=== PATIENT | male | born 1965 | race Caucasian/White ===

== ENCOUNTER 2018-06-12 18:27 | Inpatient (IN) | payer MEDICAID, OTHER ==
[2018-06-12 18:29] VITALS: BMI 45.4
--- NOTE | 2018-06-12 18:59 | ED PDOC ---
Arrival/HPI - General Time Seen by Provider: 06/12/18 18:38 Historian: Patient - History of Present Illness Narrative History of Present Illness (Text): 06/12/18 18:54 A 53 year old male, whose past medical history includes asthma, presents to the emergency department with a complaint of sudden onset chest pain. Patient notes that for the last 2 weeks his asthma has been worsening. He notes that he has been seen by his PMD who prescribed him Albuterol and nebulizer treatments, but his symptoms have not resolved. He states that he was seen by his PMD today and was prescribed Zithromax which he started taking today. The patient states that about 1.5 hours ago he began to feel a pressure like sensation in his chest pain. The patient states that he has never experienced that pain before and was concerned. He also notes that he felt warm this morning and took Tylenol for his subjective fever. The patient denies chills, headache, dizziness, sore throat, cough, chest pain, shortness of breath, dyspnea on exertion, abdominal pain, nausea, vomiting, diarrhea, neck/back pain, urinary/bowel changes or any other complaint. PMD: Dr. Justino Savage Time/Duration: Other (2 weeks) Symptom Onset: Sudden Symptom Course: Unchanged Activities at Onset: Rest, Light Context: Home Past Medical History - Provider Review Nursing Documentation Reviewed: Yes - Infectious Disease Hx of Infectious Diseases: None - Tetanus Immunization Tetanus Immunization: Unknown - Pulmonary Hx Asthma: Yes - Psychiatric Hx Depression: No Hx Emotional Abuse: No Hx Physical Abuse: No Hx Substance Use: No - Past Surgical History Past Surgical History: No Previous - Suicidal Assessment Feels Threatened In Home Enviroment: No Family/Social History - Physician Review Nursing Documentation Reviewed: Yes Family/Social History: No Known Family HX Hx Alcohol Use: No Hx Substance Use: No Hx Substance Use Treatment: No Allergies/Home Meds Allergies/Adverse Reactions: Allergies Penicillins Allergy (Verified 06/12/18 18:30) ANAPHYLAXIS Home Medications: Home Meds Medication Instructions Recorded Confirmed Adalimumab [Humira] 20 mg IM QWK 10/31/13 06/12/18 Albuterol HFA [Ventolin HFA 90 2 puff IH [id number] 06/12/18 06/12/18 mcg/actuation (8 g)] Review of Systems - Physician Review All systems were reviewed & negative as marked: Yes - Review of Systems Constitutional: Fevers ENT: absent: Sore Throat Respiratory: SOB (Worsening asthma) Cardiovascular: Chest Pain. absent: BARNETT Gastrointestinal: absent: Abdominal Pain, Stool Changes, Diarrhea, Nausea, Vomiting Genitourinary Male: absent: Urinary Output Changes Musculoskeletal: absent: Back Pain, Neck Pain Neurological: absent: Headache, Dizziness Physical Exam Vital Signs Reviewed: Yes Vital Signs Temp Pulse Resp BP Pulse Ox 06/12/18 21:01 99.9 F H 06/12/18 19:25 102.3 F H 06/12/18 18:48 103 F H 114 H 18 161/82 H 99 Temperature: Febrile Blood Pressure: Hypertensive Pulse: Tachycardic Respiratory Rate: Normal Appearance: Positive for: Well-Appearing, Non-Toxic, Comfortable Pain Distress: None Mental Status: Positive for: Alert and Oriented X 3 - Systems Exam Head: Present: Atraumatic, Normocephalic Pupils: Present: PERRL Extroacular Muscles: Present: EOMI Conjunctiva: Present: Normal Mouth: Present: Moist Mucous Membranes Neck: Present: Normal Range of Motion Respiratory/Chest: Present: Clear to Auscultation, Good Air Exchange, Tender to Palpation (Tenderness in the left sternal area of the chest. ). No: Respiratory Distress, Accessory Muscle Use Cardiovascular: Present: Regular Rate and Rhythm, Normal S1, S2. No: Murmurs Abdomen: No: Tenderness, Distention, Peritoneal Signs Back: Present: Normal Inspection Upper Extremity: Present: Normal Inspection. No: Cyanosis, Edema Lower Extremity: Present: Normal Inspection. No: Edema Neurological: Present: GCS=15, CN II-XII Intact, Speech Normal Skin: Present: Warm (Fever), Dry, Normal Color. No: Rashes Psychiatric: Present: Alert, Oriented x 3, Normal Insight, Normal Concentration Medical Decision Making ED Course and Treatment: 06/12/18 19:00 Impression: A 53 year old male presents to the emergency department with a complain of sudden onset chest pain and worsening asthma. Differential Diagnosis included but are not limited to: r/o Pneumonia Plan: -- EKG -- Chest X-ray -- Labs -- Blood Culture -- Tylenol -- Reassess and disposition Progress Notes: EKG: Ordered, reviewed, and independently interpreted the EKG. Rate : 112 BPM Rhythm : Sinus Tachycardia 06/12/18 20:41: Chest X-ray read and interpreted by me shows left lower lobe pneumonia. Port Score 76 due to Temperature 103 and HR 120's. Patient was treated with Levaquin. Has PCN allergy. Continue to hydrate. HR improved from 120's to 100's. Temperature improved. 06/12/18 21:17: Case discussed in detail with Dr. Gonzalez. Discussed case with medical massage therapist who will evaluate patient in emergency department. - Critical Care Critical Care Minutes: 30 minutes - Lab Interpretations Lab Results: 06/12/18 18:55 06/12/18 18:55 Lab Results 06/12/18 19:19: pO2 40, VBG pH 7.39, VBG pCO2 45.0, VBG HCO3 27.2, VBG Total CO2 28.6 H, VBG O2 Sat (Calc) 81.0 H, VBG Base Excess 1.7, VBG Potassium 4.2, Glucose 94, Lactate 1.5, FiO2 21.0, Sodium 140.0, Chloride 105.0, Venous Blood Potassium 4.2 06/12/18 18:55: Sodium 141, Potassium 4.4, Chloride 105, Carbon Dioxide 24, Anion Gap 17, BUN 17, Creatinine 0.8, Est GFR ( Amer) > 60, Est GFR (Non- Af Amer) > 60, Random Glucose 100, Calcium 8.7, Phosphorus 2.7, Magnesium 2.2, Total Bilirubin 0.6, AST 24, ALT 33, Alkaline Phosphatase 82, Troponin I < 0.01 , Total Protein 7.5, Albumin 4.0, Globulin 3.5, Albumin/Globulin Ratio 1.1 06/12/18 18:55: PT 14.0, INR 1.22, APTT 26.6 06/12/18 18:55: WBC 17.1 H, RBC 4.50, Hgb 13.8 L, Hct 39.8 L, MCV 88.4, MCH 30.7 , MCHC 34.7, RDW 14.5, Plt Count 264, MPV 10.2, Gran % 69.6 H, Lymph % (Auto) 19.2 L, Mcpherson % (Auto) 10.4 H, Eos % (Auto) 0.6 L, Baso % (Auto) 0.2, Gran # 11.87 H, Lymph # (Auto) 3.3, Mcpherson # (Auto) 1.8 H, Eos # (Auto) 0.1, Baso # (Auto ) 0.04 I have reviewed the lab results: Yes - RAD Interpretation Radiology Orders: 06/12/18 18:47 CHEST PORTABLE [RAD] Stat - EKG Interpretation Interpreted by ED Physician: Yes Type: 12 lead EKG - Medication Orders Current Medication Orders: Acetaminophen (Tylenol 325mg Tab) 650 mg PO Q6H PRN PRN Reason: Pain, moderate (4-7) Albuterol/Ipratropium (Duoneb 3 Mg/0.5 Mg (3 Ml) Ud) 3 ml IH Q2H PRN PRN Reason: Shortness of Breath Albuterol/Ipratropium (Duoneb 3 Mg/0.5 Mg (3 Ml) Ud) 3 ml IH [id number] MELISSA Famotidine (Pepcid 20mg/50ml Premix) 20 mg in 50 mls @ 100 mls/hr IV Q12 MELISSA Sodium Chloride (Sodium Chloride 0.9%) 1,000 mls @ 100 mls/hr IV .Q10H MELISSA Methylprednisolone (Solu-Medrol) 60 mg IVP Q8 MELISSA Discontinued Medications Acetaminophen (Tylenol 325mg Tab) 975 mg PO STAT STA Stop: 06/12/18 18:54 Last Admin: 06/12/18 19:25 Dose: 975 mg [employer] [facility] Pain/Vitals Document 06/12/18 19:25 (Rec: 06/12/18 19:44 RG [id number]) Pain Reassessment Is This A Pain ReAssessment? No Vitals Temperature (97.6 F-99.6 F) 102.3 F Temperature Source Oral Re-Assess: MAR Pain/Vitals Document 06/12/18 21:01 RG (Rec: 06/12/18 21:01 RG [id number]) Vitals Temperature (97.6 F-99.6 F) 99.9 F Temperature Source Oral Albuterol/Ipratropium (Duoneb 3 Mg/0.5 Mg (3 Ml) Ud) 3 ml IH [id number] PRN PRN Reason: Shortness of Breath Sodium Chloride (Sodium Chloride 0.9%) 1,000 mls @ 999 mls/hr IV .Q1H1M STA Stop: 06/12/18 21:15 Last Admin: 06/12/18 20:30 Dose: 999 mls/hr eMAR Start Stop Document 06/12/18 20:30 RG (Rec: 06/12/18 20:30 RG [id number]) Intravenous Solution Start Date 06/12/18 Start Time 20:30 Levofloxacin/Dextrose (Levaquin 750mg) 750 mg in 150 mls @ 100 mls/hr IVPB STAT STA PRN Reason: Protocol Stop: 06/12/18 22:12 Last Admin: 06/12/18 20:57 Dose: 100 mls/hr eMAR Start Stop Document 06/12/18 20:57 RG (Rec: 06/12/18 21:01 RG [id number]) Intravenous Solution Start Date 06/12/18 Start Time 20:57 - Scribe Statement The provider has reviewed the documentation as recorded by the Scribe Onelia Lee Provider Scribe Attestation: All medical record entries made by the Scribe were at my direction and personally dictated by me. I have reviewed the chart and agree that the record accurately reflects my personal performance of the history, physical exam, medical decision making, and the department course for this patient. I have also personally directed, reviewed, and agree with the discharge instructions and disposition. Disposition/Present on Arrival - Present on Arrival Any Indicators Present on Arrival: No History of DVT/PE: No History of Uncontrolled Diabetes: No Urinary Catheter: No History Surgical Site Infection Following: None - Disposition Have Diagnosis and Disposition been Completed?: Yes Diagnosis: Pneumonia Disposition: HOSPITALIZED Disposition Time: 22:16 Patient Plan: Admission Condition: FAIR
[2018-06-12 19:30] LABS: BASO # 0.04 K/mm3 (0.0-2.0); BASO % 0.2 % (0.0-3.0); EOS # 0.1 (0.0-0.7); EOS % 0.6 % (1.5-5.0); GRAN # 11.87 (1.4-6.5); GRAN % 69.6 % (50.0-68.0); HEMOGLOBIN 13.8 g/dL (14.0-18.0); LYMPH # 3.3 (1.2-3.4); LYMPH % 19.2 % (22.0-35.0); MEAN CELL VOLUME 88.4 fl (80.0-105.0); MEAN CORPUSCULAR HEMOGLOBIN 30.7 pg (25.0-35.0); MEAN CORPUSCULAR HGB CONC 34.7 g/dl (31.0-37.0); MEAN PLATELET VOLUME 10.2 fl (7.0-11.0); MONO # 1.8 (0.1-0.6); MONO % 10.4 % (1.0-6.0); RBC 4.5 10^6/uL (3.5-6.1); RED CELL DISTRIBUTION WIDTH 14.5 % (11.5-14.5); WHITE BLOOD COUNT 17.1 10^3/ul (4.5-11.0)
[2018-06-12 19:31] LABS: VENOUS BLOOD GAS BASE EXCESS 1.7 mmol/L (0.0-2.0); VENOUS BLOOD GAS PO2 40 mm/Hg (30-55); VENOUS BLOOD PH 7.39 (7.32-7.43)
[2018-06-12 19:40] LABS: ALB/GLOB RATIO 1.1 (1.1-1.8); ALT/SGPT 33 U/L (7-56); AST/SGOT 24 U/L (17-59); BLOOD UREA NITROGEN 17 mg/dL (7-21); CALCIUM 8.7 mg/dL (8.4-10.5); GFR AFRICAN-AMERICAN > 60; GFR NON-AFRICAN AMERICAN > 60
[2018-06-12 19:51] LABS: TROPONIN I < 0.01 ng/mL
[2018-06-12 20:04] LABS: INR 1.22
[2018-06-12 20:07] LABS: PARTIAL THROMBOPLASTIN TIME 26.6 Seconds
[2018-06-12] MEDS ORDERED: Sodium Chloride 0.9% 1,000 ML IV STA (20:15)
[2018-06-12] MEDS ORDERED: levoFLOXacin 750 mg in D5W 750 MG/150 ML BAG IVPB STA (20:43)
[2018-06-12] MEDS ORDERED: Albuterol-Ipratrop 3 mg / 0.5 (3 ml) UD IH PRN ×2 (21:40→21:48)
[2018-06-12] MEDS: Famotidine 20mg/50ml 20 MG/50 ML BAG IV SCH (22:24)
[2018-06-12] MEDS: Sodium Chloride 0.9% 1,000 ML IV SCH (22:34)
--- NOTE | 2018-06-13 00:54 | CP.PCM.HP ---
<Darwin Garcia - Last Filed: 06/13/18 07:03> History of Present Illness - History of Present Illness History of Present Illness: HPI for Dr Carlos Garcia, PGY1 C.C: Chest pain x1 day HPI: 53 y/o male with PMH of mild intermittent asthma, psoriasis presents with left sided chest pain 5-6/10, sharp, localized by one finger tip, no radiation, has been for the whole day, worsen by inspiration, no alleviating factors. Patient states that 2 weeks ago when he was in a recreational trip, he started to feel sore throat, URI symptoms, fever, cough/productive with yellow sputum, wheezing, SOB. Patient was prescribed Albuterol and Nebulizer therapy and prednisone by his PMD. His symptoms did not resolve completely and got worse after finishing prednisone. Chest pain developed today while shopping outside. His fever was up to 103, diaphoresis and cough and wheezing getting worse, then he decided to come to ED for evaluation. Patient was given Erythromycin by his PMD, took only one dose. Patient denied intubation due to asthma exacerbation. Last hospitalization was many years ago. His asthma is well controlled with Albuterol prn. Present on Admission - Present on Admission Any Indicators Present on Admission: No Review of Systems - Constitutional Constitutional: Chills, Excessive Sweating, Fatigue, Fever, Lethargy - EENT Eyes: absent: Discharge, Dry Eye, Irritation Ears: Tinnitus (chronic. b/l). absent: Ear Discharge, Dizziness Nose/Mouth/Throat: Nasal Congestion. absent: Sinus Pressure, Change in Voice - Cardiovascular Cardiovascular: absent: Chest Pain at Rest, Edema, Leg Edema, Orthopnea, Palpitations, Paroxysmal Nocturnal Dyspnea, Pedal Edema - Respiratory Respiratory: Cough, Dyspnea on Exertion, Wheezing, Snoring, Pain on Inspiration , Chest Congestion, Excessive Mucous Production, Change in Mucous Color, Pain with Coughing. absent: Hemoptysis - Gastrointestinal Gastrointestinal: absent: Abdominal Pain, Change in Stool Character, Cramping, Diarrhea, Loose Stools, Nausea, Vomiting Past Patient History - Infectious Disease Hx of Infectious Diseases: None - Tetanus Immunizations Tetanus Immunization: Unknown - Past Social History Smoking Status: Never Smoked Alcohol: None Drugs: Denies Home Situation {Lives}: With Family - CARDIAC Hx Cardiac Disorders: No Hx Hypertension: No - PULMONARY Hx Asthma: Yes Hx Sleep Apnea: Yes - NEUROLOGICAL Hx Neurological Disorder: No - HEENT Hx HEENT Problems: No - RENAL Hx Chronic Kidney Disease: No - HEMATOLOGICAL/ONCOLOGICAL Hx Blood Disorders: No - INTEGUMENTARY Hx Dermatological Problems: Yes Hx Psoriasis: Yes - PSYCHIATRIC Hx Depression: No Hx Emotional Abuse: No Hx Physical Abuse: No Hx Substance Use: No Meds Allergies/Adverse Reactions: Allergies Allergy/AdvReac Type Severity Reaction Status Date / Time Penicillins Allergy ANAPHYLAXIS Verified 06/12/18 18:30 Results - Vital Signs Recent Vital Signs: Last Vital Signs Temp 99.2 F 06/12/18 22:18 Pulse 105 H 06/12/18 22:18 Resp 16 06/12/18 22:18 BP 160/98 H 06/12/18 22:18 Pulse Ox 97 06/12/18 22:18 - Labs Result Diagrams: 06/12/18 18:55 06/12/18 18:55 Assessment & Plan (1) Asthma with exacerbation Assessment and Plan: -Mild intermittent asthma, controlled with Albuterol -Duoneb Q6H -Solu medrol 60 mg IVP Q8h - Status: Acute (2) Pneumonia Assessment and Plan: -Fever 103 in ED -WBC 17.1 -Levofloxacin 750 IVPB -Acetaminophen -Troponin - x2 -CXR Status: Acute (3) Psoriasis Assessment and Plan: -continue home medication, Humira Status: Acute <Manuela Gonzalez - Last Filed: 06/13/18 22:15> Results - Vital Signs Recent Vital Signs: Last Vital Signs Temp 98.4 F 06/13/18 17:32 Pulse 100 H 06/13/18 17:32 Resp 18 06/13/18 17:32 BP 115/70 06/13/18 17:32 Pulse Ox 99 06/13/18 17:32 - Labs Result Diagrams: 06/13/18 07:00 06/13/18 07:00 Labs: Laboratory Results - last 24 hr 06/13/18 06/13/18 06/13/18 00:45 07:00 07:00 WBC 14.6 H RBC 4.57 Hgb 13.4 L Hct 40.4 L MCV 88.4 MCH 29.3 MCHC 33.2 RDW 14.4 Plt Count 236 MPV 9.4 Gran % 88.5 H Lymph % (Auto) 10.2 L Pike % (Auto) 1.2 Eos % (Auto) 0.0 L Baso % (Auto) 0.1 Gran # 12.89 H Lymph # (Auto) 1.5 Pike # (Auto) 0.2 Eos # (Auto) 0.0 Baso # (Auto) 0.01 PT 15.1 INR 1.31 Sodium Potassium Chloride Carbon Dioxide Anion Gap BUN Creatinine Est GFR ( Amer) Est GFR (Non-Af Amer) Random Glucose Calcium Total Bilirubin AST ALT Alkaline Phosphatase Troponin I < 0.01 Total Protein Albumin Globulin Albumin/Globulin Ratio 06/13/18 07:00 WBC RBC Hgb Hct MCV MCH MCHC RDW Plt Count MPV Gran % Lymph % (Auto) Pike % (Auto) Eos % (Auto) Baso % (Auto) Gran # Lymph # (Auto) Pike # (Auto) Eos # (Auto) Baso # (Auto) PT INR Sodium 141 Potassium 4.2 Chloride 107 Carbon Dioxide 23 Anion Gap 15 BUN 16 Creatinine 0.6 L Est GFR ( Amer) > 60 Est GFR (Non-Af Amer) > 60 Random Glucose 176 H Calcium 8.4 Total Bilirubin 0.5 AST 17 D ALT 35 Alkaline Phosphatase 74 Troponin I < 0.01 Total Protein 7.4 Albumin 3.7 Globulin 3.7 Albumin/Globulin Ratio 1.0 L
[2018-06-13] MEDS: Albuterol-Ipratrop 3 mg / 0.5 (3 ml) UD IH SCH ×4 (01:09→19:50)
[2018-06-13 07:38] LABS: BASO # 0.01 K/mm3 (0.0-2.0); BASO % 0.1 % (0.0-3.0); GRAN # 12.89 (1.4-6.5); GRAN % 88.5 % (50.0-68.0); HEMOGLOBIN 13.4 g/dL (14.0-18.0); LYMPH # 1.5 (1.2-3.4); LYMPH % 10.2 % (22.0-35.0); MEAN CELL VOLUME 88.4 fl (80.0-105.0); MEAN CORPUSCULAR HEMOGLOBIN 29.3 pg (25.0-35.0); MEAN CORPUSCULAR HGB CONC 33.2 g/dl (31.0-37.0); MEAN PLATELET VOLUME 9.4 fl (7.0-11.0); MONO # 0.2 (0.1-0.6); MONO % 1.2 % (1.0-6.0); RBC 4.57 10^6/uL (3.5-6.1); RED CELL DISTRIBUTION WIDTH 14.4 % (11.5-14.5); WHITE BLOOD COUNT 14.6 10^3/ul (4.5-11.0)
[2018-06-13 07:39] LABS: INR 1.31
[2018-06-13 07:51] LABS: ALBUMIN 3.7 g/dL (3.0-4.8); ALT/SGPT 35 U/L (7-56); AST/SGOT 17 U/L (17-59); BLOOD UREA NITROGEN 16 mg/dL (7-21); CALCIUM 8.4 mg/dL (8.4-10.5); GFR AFRICAN-AMERICAN > 60; GFR NON-AFRICAN AMERICAN > 60
[2018-06-13 07:59] LABS: TROPONIN I < 0.01 ng/mL
[2018-06-13] MEDS ORDERED: Albuterol HFA 90 mcg/actuation (8 g) IH SCH (08:00)
--- NOTE | 2018-06-13 09:07 | CARD ---
APPROVED REPORT Date of service: 06/12/2018 EKG Measurement Heart [id number] <Conclusion> Sinus tachycardia Otherwise normal ECG
[2018-06-13] MEDS: levoFLOXacin 750 mg in D5W 750 MG/150 ML BAG IVPB SCH (09:20)
[2018-06-13] MEDS: Famotidine 20mg/50ml 20 MG/50 ML BAG IV SCH (09:20)
--- NOTE | 2018-06-13 10:21 | RAD ---
Date of service: 06/12/2018 HISTORY: Sepsis Patient COMPARISON: No prior. FINDINGS: LUNGS: No active pulmonary disease. PLEURA: No significant pleural effusion identified, no pneumothorax apparent. CARDIOVASCULAR: Normal. OSSEOUS STRUCTURES: No significant abnormalities. VISUALIZED UPPER ABDOMEN: Normal. OTHER FINDINGS: None. IMPRESSION: No active disease.
[2018-06-13] MEDS: Sodium Chloride 0.9% 1,000 ML IV SCH (21:27)
[2018-06-13] MEDS: MethylPREDNISolone 40 mg Vial IVP SCH (21:30)
[2018-06-14] MEDS: Albuterol-Ipratrop 3 mg / 0.5 (3 ml) UD IH SCH ×2 (02:45→07:50)
[2018-06-14] MEDS: Sodium Chloride 0.9% 1,000 ML IV SCH (06:50)
[2018-06-14 07:47] LABS: ALBUMIN 3.2 g/dL (3.0-4.8); ALT/SGPT 21 U/L (7-56); AST/SGOT 18 U/L (17-59); BLOOD UREA NITROGEN 16 mg/dL (7-21); CALCIUM 8.6 mg/dL (8.4-10.5); GFR AFRICAN-AMERICAN > 60; GFR NON-AFRICAN AMERICAN > 60
[2018-06-14 07:57] LABS: BASO # 0.01 K/mm3 (0.0-2.0); GRAN # 20.35 (1.4-6.5); GRAN % 87.9 % (50.0-68.0); HEMOGLOBIN 12.8 g/dL (14.0-18.0); LYMPH # 1.3 (1.2-3.4); LYMPH % 5.6 % (22.0-35.0); MEAN CELL VOLUME 88.9 fl (80.0-105.0); MEAN CORPUSCULAR HEMOGLOBIN 29.5 pg (25.0-35.0); MEAN CORPUSCULAR HGB CONC 33.2 g/dl (31.0-37.0); MEAN PLATELET VOLUME 10.2 fl (7.0-11.0); MONO # 1.5 (0.1-0.6); MONO % 6.5 % (1.0-6.0); RBC 4.34 10^6/uL (3.5-6.1); RED CELL DISTRIBUTION WIDTH 14.8 % (11.5-14.5); WHITE BLOOD COUNT 23.2 10^3/ul (4.5-11.0)
[2018-06-14 08:11] VITALS: BP 143/81; PULSE 95; RESP 20; TEMP 97.6; O2SAT 95
[2018-06-14] MEDS: levoFLOXacin 750 mg in D5W 750 MG/150 ML BAG IVPB SCH (09:16)
[2018-06-14] MEDS: MethylPREDNISolone 40 mg Vial IVP SCH (09:17)
[2018-06-14] MEDS ORDERED: Albuterol-Ipratrop 3 mg / 0.5 (3 ml) UD IH SCH (09:31)
[2018-06-14] MEDS ORDERED: MethylPREDNISolone 40 mg Vial IVP SCH ×2 (11:09→15:00)
[2018-06-14 14:01] LABS: PROTHROMBIN TIME 15.1 SECONDS (9.4-12.5)
--- NOTE | 2018-06-14 15:45 | CP.PCM.DIS ---
<Torsten Alcaraz - Last Filed: 06/14/18 15:57> Provider - Provider Date of Admission: 06/12/18 21:20 Attending physician: Betina Rey MD Primary care physician: Dr. Hardy Time Spent in preparation of Discharge (in minutes): 40 Diagnosis - Discharge Diagnosis (1) Asthma with exacerbation Status: Acute Priority: High (2) Bronchitis Status: Acute Priority: High (3) Psoriasis Status: Chronic Priority: Low Hospital Course - Lab Results Lab Results: Most Recent Lab Values WBC 23.2 10^3/ul (4.5-11.0) H D 06/14/18 06:15 RBC 4.34 10^6/uL (3.5-6.1) 06/14/18 06:15 Hgb 12.8 g/dL (14.0-18.0) L 06/14/18 06:15 Hct 38.6 % (42.0-52.0) L 06/14/18 06:15 MCV 88.9 fl (80.0-105.0) 06/14/18 06:15 MCH 29.5 pg (25.0-35.0) 06/14/18 06:15 MCHC 33.2 g/dl (31.0-37.0) 06/14/18 06:15 RDW 14.8 % (11.5-14.5) H 06/14/18 06:15 Plt Count 265 10^3/uL (120.0-450.0) 06/14/18 06:15 MPV 10.2 fl (7.0-11.0) 06/14/18 06:15 Gran % 87.9 % (50.0-68.0) H 06/14/18 06:15 Lymph % (Auto) 5.6 % (22.0-35.0) L 06/14/18 06:15 [place] % (Auto) 6.5 % (1.0-6.0) H 06/14/18 06:15 Eos % (Auto) 0.0 % (1.5-5.0) L 06/14/18 06:15 Baso % (Auto) 0.0 % (0.0-3.0) 06/14/18 06:15 Gran # 20.35 (1.4-6.5) H 06/14/18 06:15 Lymph # (Auto) 1.3 (1.2-3.4) 06/14/18 06:15 [place] # (Auto) 1.5 (0.1-0.6) H 06/14/18 06:15 Eos # (Auto) 0.0 (0.0-0.7) 06/14/18 06:15 Baso # (Auto) 0.01 K/mm3 (0.0-2.0) 06/14/18 06:15 PT 15.1 SECONDS (9.4-12.5) 06/13/18 07:00 INR 1.31 06/13/18 07:00 APTT 26.6 Seconds 06/12/18 18:55 pO2 40 mm/Hg (30-55) 06/12/18 19:19 VBG pH 7.39 (7.32-7.43) 06/12/18 19:19 VBG pCO2 45.0 (40-60) 06/12/18 19:19 VBG HCO3 27.2 mmol/l (21-28) 06/12/18 19:19 VBG Total CO2 28.6 mmol.L (22-28) H 06/12/18 19:19 VBG O2 Sat (Calc) 81.0 % (40-65) H 06/12/18 19:19 VBG Base Excess 1.7 mmol/L (0.0-2.0) 06/12/18 19:19 VBG Potassium 4.2 mmol/L (3.6-5.2) 06/12/18 19:19 Sodium 140.0 mmol/L (132-148) 06/12/18 19:19 Chloride 105.0 mmol/L (98-107) 06/12/18 19:19 Glucose 94 mg/dl (75-110) 06/12/18 19:19 Lactate 1.5 mmol/L (0.7-2.1) 06/12/18 19:19 FiO2 21.0 % 06/12/18 19:19 Sodium 143 mmol/L (132-148) 06/14/18 07:00 Potassium 4.6 mmol/L (3.6-5.0) 06/14/18 07:00 Chloride 110 mmol/L (98-107) H 06/14/18 07:00 Carbon Dioxide 22 mmol/L (21-33) 06/14/18 07:00 Anion Gap 15 (10-20) 06/14/18 07:00 BUN 16 mg/dL (7-21) 06/14/18 07:00 Creatinine 0.6 mg/dl (0.8-1.5) L 06/14/18 07:00 Est GFR ( Amer) > 60 06/14/18 07:00 Est GFR (Non-Af Amer) > 60 06/14/18 07:00 Random Glucose 177 mg/dL (70-110) H 06/14/18 07:00 Calcium 8.6 mg/dL (8.4-10.5) 06/14/18 07:00 Phosphorus 2.7 mg/dL (2.5-4.5) 06/12/18 18:55 Magnesium 2.2 mg/dL (1.7-2.2) 06/12/18 18:55 Total Bilirubin 0.2 mg/dL (0.2-1.3) 06/14/18 07:00 AST 18 U/L (17-59) 06/14/18 07:00 ALT 21 U/L (7-56) 06/14/18 07:00 Alkaline Phosphatase 77 U/L (38-126) 06/14/18 07:00 Troponin I < 0.01 ng/mL 06/13/18 07:00 Total Protein 6.3 g/dL (5.8-8.3) 06/14/18 07:00 Albumin 3.2 g/dL (3.0-4.8) 06/14/18 07:00 Globulin 3.1 gm/dL 06/14/18 07:00 Albumin/Globulin Ratio 1.0 (1.1-1.8) L 06/14/18 07:00 Procalcitonin < 0.05 NG/ML (0.19-0.49) L 06/12/18 18:55 Venous Blood Potassium 4.2 mmol/L (3.6-5.2) 06/12/18 19:19 - Hospital Course Hospital Course: Torsten Alcaraz DO PGY1 Internal Medicine [employer] - Hospital Discharge Summary CC: L sided CP, Wheezing HPI 53 y/o male with PMH of mild intermittent asthma, psoriasis presented with left sided chest pain 5-6/10, sharp, localized by one finger tip, no radiation, has been for the whole day, worsen by inspiration, no alleviating factors. Patient states that 2 weeks ago he had URI symptoms, fever, cough/productive with yellow sputum, wheezing, SOB. Patient was prescribed 5 day steroid course by PMD. His symptoms did not resolve completely and got worse after finishing prednisone. He reported fever up to 103F, diaphoresis and cough and wheezing getting worse, then he decided to come to ED for evaluation. This is a patient who presented with URI symptoms which had been ongoing for 2 weeks. He was febrile with a Tmax of 103 on presentation with some shortness of breath, wheezing, and R sided reproducible chest pain. His troponins were negative, and He was started on levofloxacin 750mg qd. CXR official read was no active disease thus likely thus was a bronchitis etiology for his symtpoms, his Procal was also negative. Pt. was started on duoneb scheduled and prn as well as solumedrol which was tapered (60mg ivp q8h -> 30mg ivp q12h). Patient symptoms significantly improved and has been afebrile. His wbc remained elevated on discharge which was likely secondary to steroid use. Blood cultures came back negative. By discharge patient was saturating well on room air. Minimal complaints of wheezing and no complaints of SOB at this time. Patient does report a minimal cough. Overall patient reports feeling much better than presentation. - Date & Time of H&P Date of H&P: 06/14/18 Time of H&P: 15:45 Discharge Exam - Head Exam Head Exam: ATRAUMATIC, NORMOCEPHALIC - Eye Exam Eye Exam: EOMI, Normal appearance, PERRL. absent: Scleral icterus - ENT Exam ENT Exam: Mucous Membranes Moist - Respiratory Exam Respiratory Exam: Wheezes (Minimal for 1-2 breaths; resolved at the end of lung exam ), NORMAL BREATHING PATTERN - Cardiovascular Exam Cardiovascular Exam: RRR, +S1, +S2. absent: Systolic Murmur - GI/Abdominal Exam GI & Abdominal Exam: Normal Bowel Sounds, Soft, Unremarkable. absent: Tenderness - Back Exam Back exam: absent: CVA tenderness (L), CVA tenderness (R) - Neurological Exam Neurological exam: Alert, CN II-XII Intact, Normal Gait, Oriented x3 - Psychiatric Exam Psychiatric exam: Normal Affect, Normal Mood - Skin Skin Exam: Dry, Intact, Warm Discharge Plan - Discharge Medications Prescriptions: RX: Levofloxacin [Levaquin] 500 mg PO DAILY #3 tablet predniSONE [Prednisone] See Taper PO DAILY 5 Days #8 tab - Follow Up Plan Condition: GOOD Disposition: HOME/ ROUTINE Instructions: Acute Bronchitis, Asthma Action Plan, Asthma (DC) Additional Instructions: 1. You are medically stable for discharge at this time; You were admitted for asthma exacerbation and bronchitis 2. Please continue taking your home Humira every week for psoriasis 3. Please take Levofloxacin 500mg QD for the next 3 days for bronchitis 4. Please continue taking prednisone taper as prescribed 5. Please continue taking albuterol inhaler as needed for wheezing; 6. If wheezing becomes uncontrollable, and shortness of breath develops please go to the nearest emergency department 7. If symptoms further worsen please go to nearest emergency department 8. Please follow up with your primary care doctor Dr. Hardy within 7 days <Betina Rey - Last Filed: 06/14/18 16:11> Provider - Provider Date of Admission: 06/12/18 21:20 Attending physician: Betina Rey MD Hospital Course - Lab Results Lab Results: Most Recent Lab Values WBC 23.2 10^3/ul (4.5-11.0) H D 06/14/18 06:15 RBC 4.34 10^6/uL (3.5-6.1) 06/14/18 06:15 Hgb 12.8 g/dL (14.0-18.0) L 06/14/18 06:15 Hct 38.6 % (42.0-52.0) L 06/14/18 06:15 MCV 88.9 fl (80.0-105.0) 06/14/18 06:15 MCH 29.5 pg (25.0-35.0) 06/14/18 06:15 MCHC 33.2 g/dl (31.0-37.0) 06/14/18 06:15 RDW 14.8 % (11.5-14.5) H 06/14/18 06:15 Plt Count 265 10^3/uL (120.0-450.0) 06/14/18 06:15 MPV 10.2 fl (7.0-11.0) 06/14/18 06:15 Gran % 87.9 % (50.0-68.0) H 06/14/18 06:15 Lymph % (Auto) 5.6 % (22.0-35.0) L 06/14/18 06:15 [place] % (Auto) 6.5 % (1.0-6.0) H 06/14/18 06:15 Eos % (Auto) 0.0 % (1.5-5.0) L 06/14/18 06:15 Baso % (Auto) 0.0 % (0.0-3.0) 06/14/18 06:15 Gran # 20.35 (1.4-6.5) H 06/14/18 06:15 Lymph # (Auto) 1.3 (1.2-3.4) 06/14/18 06:15 [place] # (Auto) 1.5 (0.1-0.6) H 06/14/18 06:15 Eos # (Auto) 0.0 (0.0-0.7) 06/14/18 06:15 Baso # (Auto) 0.01 K/mm3 (0.0-2.0) 06/14/18 06:15 PT 15.1 SECONDS (9.4-12.5) 06/13/18 07:00 INR 1.31 06/13/18 07:00 APTT 26.6 Seconds 06/12/18 18:55 pO2 40 mm/Hg (30-55) 06/12/18 19:19 VBG pH 7.39 (7.32-7.43) 06/12/18 19:19 VBG pCO2 45.0 (40-60) 06/12/18 19:19 VBG HCO3 27.2 mmol/l (21-28) 06/12/18 19:19 VBG Total CO2 28.6 mmol.L (22-28) H 06/12/18 19:19 VBG O2 Sat (Calc) 81.0 % (40-65) H 06/12/18 19:19 VBG Base Excess 1.7 mmol/L (0.0-2.0) 06/12/18 19:19 VBG Potassium 4.2 mmol/L (3.6-5.2) 06/12/18 19:19 Sodium 140.0 mmol/L (132-148) 06/12/18 19:19 Chloride 105.0 mmol/L (98-107) 06/12/18 19:19 Glucose 94 mg/dl (75-110) 06/12/18 19:19 Lactate 1.5 mmol/L (0.7-2.1) 06/12/18 19:19 FiO2 21.0 % 06/12/18 19:19 Sodium 143 mmol/L (132-148) 06/14/18 07:00 Potassium 4.6 mmol/L (3.6-5.0) 06/14/18 07:00 Chloride 110 mmol/L (98-107) H 06/14/18 07:00 Carbon Dioxide 22 mmol/L (21-33) 06/14/18 07:00 Anion Gap 15 (10-20) 06/14/18 07:00 BUN 16 mg/dL (7-21) 06/14/18 07:00 Creatinine 0.6 mg/dl (0.8-1.5) L 06/14/18 07:00 Est GFR ( Amer) > 60 06/14/18 07:00 Est GFR (Non-Af Amer) > 60 06/14/18 07:00 Random Glucose 177 mg/dL (70-110) H 06/14/18 07:00 Calcium 8.6 mg/dL (8.4-10.5) 06/14/18 07:00 Phosphorus 2.7 mg/dL (2.5-4.5) 06/12/18 18:55 Magnesium 2.2 mg/dL (1.7-2.2) 06/12/18 18:55 Total Bilirubin 0.2 mg/dL (0.2-1.3) 06/14/18 07:00 AST 18 U/L (17-59) 06/14/18 07:00 ALT 21 U/L (7-56) 06/14/18 07:00 Alkaline Phosphatase 77 U/L (38-126) 06/14/18 07:00 Troponin I < 0.01 ng/mL 06/13/18 07:00 Total Protein 6.3 g/dL (5.8-8.3) 06/14/18 07:00 Albumin 3.2 g/dL (3.0-4.8) 06/14/18 07:00 Globulin 3.1 gm/dL 06/14/18 07:00 Albumin/Globulin Ratio 1.0 (1.1-1.8) L 06/14/18 07:00 Procalcitonin < 0.05 NG/ML (0.19-0.49) L 06/12/18 18:55 Venous Blood Potassium 4.2 mmol/L (3.6-5.2) 06/12/18 19:19 Attending/Attestation - Attestation I have personally seen and examined this patient.: Yes I have fully participated in the care of the patient.: Yes I have reviewed all pertinent clinical information, including history, physical exam and plan: Yes Notes (Text): 06/14/18 16:00 53 year old male with past medical history of asthma who presented with complaint of shortness of breath secondary to asthma exacerbation. He was started on iv steroids, antibiotics and duonebs with improvement of symptoms. CXR was negative. Initially he had fever which came down. Leukocytosis likely secondary to steroids. Cultures were negative. Overall his symptoms improved. He is discharged on tapering steroids and antibiotics. Follow up with pmd. Monitor CBC. Betina Rey MD Hospitalist.
== END 2018-06-14 16:07 | disposition home or self-care (01) | DRG 97 ==
LOC: ED 18:27 → ERH 21:20 → 3RNO 22:54
PROVIDERS: ADMIT Hospitalist; ATTEND Internal Medicine
DX: J45.21 Mild intermittent asthma with (acute) exacerbation (principal); L40.9 Psoriasis, unspecified; G47.30 Sleep apnea, unspecified; D72.829 Elevated white blood cell count, unspecified; T38.0X5A Adverse effect of glucocorticoids and synthetic analogues, initial encounter; Z88.0 Allergy status to penicillin